=== PATIENT | female | born 1995 | race Hispanic/Latino ===

== ENCOUNTER 2018-06-13 20:32 | Emergency (ER) | payer BC ==
[2018-06-13 20:42] VITALS: BP 117/76; PULSE 70; TEMP 98; O2SAT 100
--- NOTE | 2018-06-13 20:58 | C.PDOC ---
History Of Present Illness 22 y/o female, with history of allergy to peanuts, comes in after she consumed a dish with peanut sauce. Patient states she immediately developed throat itching and tightness. Patient administered epipen and states she feels fine now. Denies any rash, SOB, or cough. Time Seen by Provider: 06/13/18 20:45 Chief Complaint (Nursing): Allergic Reaction History Per: Patient History/Exam Limitations: no limitations Onset/Duration Of Symptoms: Hrs Current Symptoms Are (Timing): Still Present Past Medical History Reviewed: Historical Data, Nursing Documentation, Vital Signs Vital Signs: Last Vital Signs Temp 98 F 06/13/18 20:37 Pulse 70 06/13/18 20:37 Resp 14 06/13/18 20:37 BP 117/76 06/13/18 20:37 Pulse Ox 100 06/13/18 20:37 Family History: States: No Known Family Hx - Social History Hx Alcohol Use: Yes Hx Substance Use: No - Immunization History Hx Tetanus Toxoid Vaccination: Yes Hx Influenza Vaccination: No Hx Pneumococcal Vaccination: No Review Of Systems Except As Marked, All Systems Reviewed And Found Negative. ENT: Positive for: Other (Throat tightness) Physical Exam - Physical Exam Appears: Non-toxic, No Acute Distress Skin: Warm, Dry Head: Atraumatic, Normacephalic Eye(s): bilateral: Normal Inspection Oral Mucosa: Moist Tongue: No Swelling Lips: No Swelling Throat: Normal, No Erythema Neck: Supple Chest: Symmetrical Cardiovascular: Rhythm Regular, No Murmur Respiratory: Normal Breath Sounds, No Rales, No Rhonchi, No Wheezing Gastrointestinal/Abdominal: Soft, No Tenderness Extremity: Bilateral: Atraumatic, Normal Color And Temperature, Normal ROM Neurological/Psych: Oriented x3, Normal Speech ED Course And Treatment O2 Sat by Pulse Oximetry: 100 (RA) Pulse Ox Interpretation: Normal Medical Decision Making Medical Decision Making: Plan: --Prednisone 60 mg PO Patient states she feels her normal self. No limitations for breathing. Will refill for epipen. Diagnosis: Allergic reaction Disposition Counseled Patient/Family Regarding: Diagnosis, Need For Followup, Rx Given - Disposition Disposition: HOME/ ROUTINE Disposition Time: 21:20 Condition: STABLE Additional Instructions: follow up with your doctor within 2 days call to make an appointment take medications as prescribed return to ER if symptoms worsens or progress Prescriptions: Epinephrine HCl [Epipen Auto-Injector] 1 in INJ ONCE PRN #1 appl PRN Reason: Anaphylaxis predniSONE [predniSONE Tab] 50 mg PO DAILY #4 tab Instructions: Food Allergy Forms: [facility] (Croatian), General Discharge Instructions - Clinical Impression Clinical Impression: Allergic reaction - Scribe Statement The provider has reviewed the documentation as recorded by the Scribe Mylene See Provider Attestation: All medical record entries made by the Scribe were at my direction and personally dictated by me. I have reviewed the chart and agree that the record accurately reflects my personal performance of the history, physical exam, medical decision making, and the department course for this patient. I have also personally directed, reviewed, and agree with the discharge instructions and disposition.
[2018-06-13 21:27] VITALS: RESP 20
== END 2018-06-13 21:26 | disposition home or self-care (01) ==
LOC: C.ER 20:32
DX: T78.40XA Allergy, unspecified, initial encounter (principal); Z91.010 Allergy to peanuts